=== PATIENT | male | born 1960 | race Caucasian/White ===

== ENCOUNTER 2023-08-07 10:42 | Outpatient (CLI) | payer BC, SELFPAY ==
[2023-08-07 17:28] LABS: Hemoglobin A1C 5.8 % (<5.7)
[2023-08-10 10:19] LABS: IgA 118 mg/dL (85-499)
[2023-08-11 17:19] LABS: Tissue Transglutaminase Ab IgA <1.2 U/mL; Tissue Transglutaminase Ab IgG <1.2 U/mL
[2023-08-12 19:37] LABS: Gliadin (Deamidated) Ab, IgA <10.0 U; Gliadin (Deamidated) Ab, IgG <10.0 U
== END 2023-08-07 10:43 ==
LOC: LBO 08-12 10:43
PROVIDERS: Visit Provider Student in an Organized Health Care Education/Training Program
DX: R73.03 Prediabetes (principal); K52.9 Noninfective gastroenteritis and colitis, unspecified
CPT/HCPCS: 36415; 82784; 83516; 83036; 86255

== ENCOUNTER 2023-08-14 20:04 | Outpatient (REF) | payer BC, SELFPAY ==
[2023-08-14 20:21] LABS: Calculated LDL 93 mg/dL (<100); Cholesterol 144 mg/dL (<200); HDL Cholesterol 37 mg/dL (40-60); TSH (W/Ref FT4) 1.98 uIU/mL (0.36-3.74); Triglyceride 73 mg/dL (<150)
[2023-08-17 08:15] LABS: PSA, Screening 2.2 ng/mL (<=4.5)
== END 2023-08-14 20:05 | disposition home or self-care (01) ==
LOC: NCHCN 20:04
PROVIDERS: Visit Provider Student in an Organized Health Care Education/Training Program
DX: Z12.5 Encounter for screening for malignant neoplasm of prostate (principal); E78.5 Hyperlipidemia, unspecified
CPT/HCPCS: 80061; 84153; 84443

== ENCOUNTER 2024-07-18 12:31 | Outpatient (REF) | payer BC, SELFPAY ==
[2024-07-18 15:38] LABS: HCT 42.7 % (40.0-50.0); HGB 14.4 g/dL (13.5-17.5); MCH 28.9 pg (27.0-33.0); MCHC 33.7 % (32.0-36.0); MCV 86 fL (80-95); MPV 9.8 fL (8.0-11.0); Platelet Count 184 10^3/uL (130-400); RBC 4.98 10^6/uL (4.36-5.78); RDW 13.2 % (11.8-14.1); RDW-SD 41.1 fL; WBC 10.87 10^3/uL (4.4-10.8)
[2024-07-18 15:46] LABS: ESR 1 mm/hr (0-20)
[2024-07-18 16:24] LABS: C-Reactive Protein < 0.50 mg/dL (<or=0.5); Uric Acid 6.7 mg/dL (3.5-7.2)
[2024-07-18 21:58] LABS: Rheumatoid Factor 34.6 IU/mL (<12.0)
[2024-07-19 08:52] LABS: Lyme Ab w Rflx to Lyme Confirm Negative (Negative)
[2024-07-19 10:26] LABS: Cyclic Citrullinated Peptide <2.5 U/mL (<5.0)
== END 2024-07-18 12:32 | disposition home or self-care (01) ==
LOC: NCHCN 12:31
PROVIDERS: PCP Student in an Organized Health Care Education/Training Program; Visit Provider Student in an Organized Health Care Education/Training Program
DX: M79.644 Pain in right finger(s) (principal)
CPT/HCPCS: 85027; 85652; 86200; 84550; 86140; 86431; 86618

== ENCOUNTER 2024-07-18 13:47 | Outpatient (CLI) | payer BC, SELFPAY ==
--- NOTE | 2024-07-18 | DI.RAD_ITS ---
Exam(s) XR FINGER RT INDEX EXAM: XR FINGER RT INDEX CLINICAL HISTORY: Pain in finger of rt hand, M79.644. TECHNIQUE: 2D digital imaging was performed. Three views. COMPARISON: No exams were available for comparison FINDINGS: BONES: No acute fracture is present. No bony destructive lesion is seen. JOINTS: No dislocation present. Moderate degenerative changes of the distal interphalangeal joint of the index finger. Mild degenerative changes elsewhere. SOFT TISSUE: Normal. No foreign body. IMPRESSION: Degenerative changes of the distal interphalangeal joint. No acute abnormality. DATA REPOSITORY: RADIATION DOSE DELIVERED:
== END 2024-07-18 14:07 ==
PROVIDERS: PCP Student in an Organized Health Care Education/Training Program; Visit Provider Student in an Organized Health Care Education/Training Program
DX: M79.644 Pain in right finger(s) (principal)
CPT/HCPCS: 73140

== ENCOUNTER 2024-07-25 13:36 | Outpatient (REF) | payer BC, SELFPAY ==
[2024-07-25 16:04] LABS: Hemoglobin A1C 5.8 % (<5.7)
[2024-07-25 16:08] LABS: Calculated LDL 86 mg/dL (<100); Cholesterol 136 mg/dL (<200); HDL Cholesterol 40 mg/dL (40-60); Triglyceride 52 mg/dL (<150)
[2024-07-26 13:31] LABS: ANA Interpretation Negative (Negative)
== END 2024-07-25 13:37 | disposition home or self-care (01) ==
LOC: NCHCN 13:36
PROVIDERS: PCP Student in an Organized Health Care Education/Training Program; Visit Provider Student in an Organized Health Care Education/Training Program
DX: R76.0 Raised antibody titer (principal); E78.5 Hyperlipidemia, unspecified; R73.03 Prediabetes
CPT/HCPCS: 80061; 83036; 86038

== ENCOUNTER 2024-11-21 18:18 | Outpatient (REF) | payer BC, SELFPAY | END 2024-11-21 18:19 | disposition home or self-care (01) | LOC: LBN 18:18 | PROVIDERS: PCP Student in an Organized Health Care Education/Training Program; Visit Provider Nurse Practitioner Family | DX: J02.9 Acute pharyngitis, unspecified (principal) | CPT/HCPCS: 87070 ==

== ENCOUNTER 2024-12-01 19:11 | Outpatient (REF) | payer BC, SELFPAY ==
[2024-12-01 18:55] LABS: HCT 43.2 % (40.0-50.0); HGB 14.6 g/dL (13.5-17.5); MCH 29.2 pg (27.0-33.0); MCHC 33.8 % (32.0-36.0); MCV 86 fL (80-95); MPV 9.7 fL (8.0-11.0); RDW 12.8 % (11.8-14.1); RDW-SD 39.8 fL; WBC 16.78 10^3/uL (4.4-10.8)
[2024-12-01 19:25] LABS: Absolute Basophil Count 0.17 10^3/uL (0.0-0.2); Absolute Eosinophil Count 0.17 10^3/uL (0.0-0.7); Absolute Lymphocyte Count 6.71 10^3/uL (1.2-3.4); Absolute Monocyte Count 0.84 10^3/uL (0.1-0.8); Absolute Neutrophil Count 8.89 10^3/uL (1.2-6.7); Atypical Lymphocytes % 8 %; Bands % 1 %; Diff Comment Manual Differential; Platelet Count 188 10^3/uL (130-400); RBC Morphology Normal
[2024-12-02 18:37] LABS: PSA, Diagnostic 10.5 ng/mL (<=4.5)
[2024-12-05 11:20] LABS: EBNA IgG Positive (Negative); EBV Interpretation (See Note); VCA IgG Positive (Negative); VCA IgM Negative (Negative)
== END 2024-12-01 19:12 | disposition home or self-care (01) ==
LOC: NCHCN 19:11
PROVIDERS: PCP Student in an Organized Health Care Education/Training Program; Visit Provider Student in an Organized Health Care Education/Training Program
DX: J02.9 Acute pharyngitis, unspecified (principal); R39.12 Poor urinary stream
CPT/HCPCS: 83036; 84153; 85025; 86664; 86665

== ENCOUNTER 2025-03-13 09:58 | Day surgery (SDC) | payer BC, SELFPAY ==
[2025-03-13 10:15] VITALS: BP 131/78; PULSE 71; RESP 18; TEMP 36.4; O2SAT 96
[2025-03-13] MEDS: Lactated Ringers 500 ML 80 ML IV (10:27)
--- NOTE | 2025-03-13 10:40 | W.ANESPRE ---
General Info Date of Service Date Performed: 03/13/25 Height: 5 ft 10 in Weight: 103.4 kg Body Mass Index (BMI): 32.7 Surgical Procedure: Operation Date: 03/13/25 11:05 Proposed Procedure Side Surgeon p Colonoscopy/Gastroscopy Shannan Arriaza MD Meds Allergies and Home Medications Allergies Allergy/AdvReac Type Severity Reaction Status Date / Time No Known Allergies Allergy Verified 03/13/25 10:13 Home Medication ?Medication ?Instructions ?Recorded atorvastatin 10 mg tablet (Lipitor) 10 mg PO DAILY 12/15/24 butalbital 50 mg-acetaminophen 300 1 cap PO Q4H PRN 12/15/24 mg-caffeine 40 mg-codeine 30 mg cap colchicine 0.6 mg capsule 0.6 mg PO BID 12/15/24 esomeprazole magnesium 20 mg 20 mg PO DAILY 12/15/24 capsule,delayed release (Nexium) lactobacillus combination no.9 4 4,000 mmu cells PO DAILY 12/15/24 billion cell capsule (Adult 50 Plus Probiotic) naproxen sodium 220 mg capsule 220 mg PO BID PRN 12/15/24 acetaminophen 650 mg 650 mg PO Q12H PRN 02/01/25 tablet,extended release (Tylenol Arthritis Pain) bisacodyl 5 mg tablet,delayed 5 mg PO ONCE colonscopy bowel prep 02/01/25 release (Dulcolax (bisacodyl)) #4 tabs esomeprazole magnesium 40 mg 40 mg PO DAILY #90 caps 02/01/25 capsule,delayed release polyethylene glycol 3350 17 238 g PO ONCE colonoscopy prep 02/01/25 gram/dose oral powder #238 grams Current Visit Medications: Current Medications Generic Name Dose Route Start Last Admin Trade Name Freq PRN Reason Stop Dose Admin Ringer's Solution 500 mls @ 80 mls/hr 03/13/25 09:55 03/13/25 10:27 IV 04/12/25 09:54 80 mls/hr PREOP DARWIN Administration IV Miscellaneous Supplies 1 each 03/13/25 06:00 Iv Access IV 03/13/25 23:59 DIRECTED DARWIN Sodium Biphosphate/Sodium Phosphate 133 - 266 ml 03/13/25 06:00 Na Phosphate Enema-Adult 133 Ml Btl TX 03/13/25 23:59 PRN PRN Sodium Chloride 0 ml 03/13/25 06:00 Normal Saline Flush 10 Ml Syr IV 03/13/25 23:59 PRN PRN Sodium Chloride 0 ml 03/13/25 06:00 Normal Saline 10 Ml Vial IJ 03/13/25 23:59 DIRECTED PRN Sterile Water 0 ml 03/13/25 06:00 Water,Injection,Sterile 10 Ml Vial IJ 03/13/25 23:59 DIRECTED PRN PFSH Active Problems Active Problems: Problem Status Onset Code Polyarthropathy Acute M13.0 Barretts esophagus Acute K22.70 GERD without esophagitis Acute K21.9 Hyperlipidemia Acute E78.5 Malignant neoplasm of skin Acute C44.90 Elevated PSA Acute R97.20 Medical History Medical History Altered bowel function Chronic diarrhea Chest pain Impingement syndrome, shoulder Biceps tendonitis on right Sore throat Essential hypertension Migraine Depressive disorder Acute stress disorder Anxiety state Vitamin D deficiency Surgical History Surgical History H/O shoulder surgery R shoulder Tobacco Smoking/Tobacco Use Status: Never Alcohol Alcohol Intake: never Substance Use Substance use: Occasionally Substance use type: marijuana Details: Last used marijuana on 03/11/25 Vital Signs and Lab Results Vital Signs Most Recent Vital Signs in EMR: Most Recent Vital Signs Temp Pulse Resp BP Pulse Ox 36.4 C L 71 18 131/78 96 03/13/25 10:15 03/13/25 10:15 03/13/25 10:15 03/13/25 10:15 03/13/25 10:15 Anesthesia Assessment and Plan Anesthesia History Personal History: No History of Anesthesia Complications Family History: No Family History of Anesthesia Complications Exercise Tolerance Exercise Tolerance: Metabolic Equivalents>4 Pertinent Negatives Pertinent Negatives: No Symptoms of GERD Cardiac & Pulmonary Exam Cardiac Exam: Normal S1/S2 Heart Sounds Pulmonary Exam: Clear Bilateral Breath Sounds Implantable Cardiac Device Does patient have a Pacemaker or an ICD?: No Airway Exam Known Difficult Airway: No Mallampati Class: 1 Mouth Opening: Normal (> 3cm) Thyromental Distance: Greater than 3 cm Neck Range of Motion: Full ROM Neck Circumference: Normal Teeth Condition: Normal Dentition ASA Classification ASA Score: ASA 2 Emergency Case?: No NPO Status NPO Status: NPO Clears >2 hours, Solids >8 hours Anesthesia Plan Resuscitation Status: Full Code Anesthesia Technique: General Anesthesia Airway Planned: Natural Airway Monitors Used: Standard Monitors
[2025-03-13 10:44] VITALS: BMI 32.7
--- NOTE | 2025-03-13 10:56 | W.PM.HP.N ---
Date of service: 03/13/25 Time of Service: 10:56 Assessment and Plan Assessment and plan (1) Encounter for colonoscopy due to history of adenomatous colonic polyps: Status: Acute Assessment and plan: Proceed with EGD and colonoscopy for barretts surveillance and polyp surveillance. Discussed procedures with patient and consent obtained. Nexum 40mg daily recommended for barretts, he takes 20mg. He will try the 40mg dose and if he gets adverse effects he can switch back to the 20mg dose. (2) Barretts esophagus: Status: Acute Assessment and plan: due for surveillance egd. proceed as planned. History of Present Illness History of Present Illness Chief Complaint: endoscopy Narrative: 64yo M here for egd and colonoscopy for barretts surveillance and hx of polyps. HPI from prior visit on 02/01/2025 is as follows for reference: The patient presents for a preoperative visit for colonoscopy and EGD. The primary reason for this visit is the management of Alvarado's esophagus, which necessitates an EGD every 2 to 3 years. He recalls undergoing both procedures in 2021 due to significant heartburn. He is a non-smoker and ceased alcohol consumption 13 years ago due to its exacerbation of his heartburn. He also avoids chocolate, another trigger for his heartburn. He suspects a hiatal hernia, as his father had a similar condition. His heartburn symptoms are well-managed with Nexium, although he notes that his diet can influence these symptoms. Recently, he has noticed weight gain, which he attributes to poor dietary choices. He often wakes up at night due to discomfort. He was previously on omeprazole 40 mg for heartburn but discontinued it due to severe diarrhea. He then switched to Nexium 20 mg, which he tolerates well. PFSH All Active Problems (Updated 03/13/25 @ 10:57 by Shannan Arriaza MD) Encounter for colonoscopy due to history of adenomatous colonic polyps (Acute) Polyarthropathy (Acute) Barretts esophagus (Acute) GERD without esophagitis (Acute) Hyperlipidemia (Acute) Malignant neoplasm of skin (Acute) Elevated PSA (Acute) Medical History (Updated 03/13/25 @ 10:57 by Shannan Arriaza MD) Altered bowel function Chronic diarrhea Chest pain Impingement syndrome, shoulder Biceps tendonitis on right Sore throat Essential hypertension Migraine Depressive disorder Acute stress disorder Anxiety state Vitamin D deficiency Surgical History H/O shoulder surgery R shoulder Social History Smoking/Tobacco Use Status: Never Smoking risk assessment performed?: Yes Alcohol Intake: never Drug use: Occasionally Substance use type: marijuana Details: Last used marijuana on 03/11/25 Housing: house Additional Social history: [place] privately Meds Allergies and Home Medications Allergies Allergy/AdvReac Type Severity Reaction Status Date / Time No Known Allergies Allergy Verified 03/13/25 10:13 Home Medications ?Medication ?Instructions ?Recorded ?Confirmed ?Type atorvastatin 10 mg tablet (Lipitor) 10 mg PO DAILY 12/15/24 03/13/25 History butalbital 50 mg-acetaminophen 300 1 cap PO Q4H PRN 12/15/24 03/10/25 History mg-caffeine 40 mg-codeine 30 mg cap colchicine 0.6 mg capsule 0.6 mg PO BID 12/15/24 03/10/25 History esomeprazole magnesium 20 mg 20 mg PO DAILY 12/15/24 03/13/25 History capsule,delayed release (Nexium) lactobacillus combination no.9 4 4,000 mmu cells PO DAILY 12/15/24 03/10/25 History billion cell capsule (Adult 50 Plus Probiotic) naproxen sodium 220 mg capsule 220 mg PO BID PRN 12/15/24 03/10/25 History acetaminophen 650 mg 650 mg PO Q12H PRN 02/01/25 03/10/25 History tablet,extended release (Tylenol Arthritis Pain) bisacodyl 5 mg tablet,delayed 5 mg PO ONCE colonscopy bowel prep 02/01/25 03/10/25 Rx release (Dulcolax (bisacodyl)) #4 tabs esomeprazole magnesium 40 mg 40 mg PO DAILY #90 caps 02/01/25 03/13/25 Rx capsule,delayed release polyethylene glycol 3350 17 238 g PO ONCE colonoscopy prep 02/01/25 03/10/25 Rx gram/dose oral powder #238 grams Exam Narrative Exam Narrative: awake, NAD eomi, MMM midline trachea, neck is symmetric PULM: normal resp effort, equal chest rise with respiration, no wheezing audible CARDIAC: normal PMI, no jvd, regular rate, normal perfusion abdomen is nondistended. extremities are without deformity, normal movement of all four extremities speech is clear and coherent mood and affect are congruent, no focal neurological deficits skin without rash Results Last Vital Signs Temp 97.5 F L 03/13/25 10:15 Pulse 71 03/13/25 10:15 Resp 18 03/13/25 10:15 BP 131/78 03/13/25 10:15 Pulse Ox 96 03/13/25 10:15 Time Spent Time spent with Patient: <40 minutes Time was spent: preparing to see the patient(eg.review tests), counseling the patient and care coordination
--- NOTE | 2025-03-13 11:13 | ESO_PTH ---
PATIENT: Mendez Avila LOC: [facility] U#:[id number] AGE/SX: 64/M ROOM: RE03/13/[address]: Shannan Arriaza MD : 1960 BED: DIS: 03/13/2025 SPEC #: [id number] RECD: 03/13/25 12:50 STATUS: LUAN REAlisa #: [id number] EDGAR: 03/13/25 11:[address]: Shannan Arriaza DEPT: Surgical Specimen RECD BY: Meera Trejo ENTERED: 03/13/25 12:50 SP TYPE: Zachery CASTRO DR: Nish Anthony Tissues: 1 - ESOPHAGUS BIOPSY Procedures: GROSS AND MICRO LEVEL 4 Comments: [id number]
--- NOTE | 2025-03-13 11:38 | W.PM.DSUDISC ---
Date of service: 03/13/25 Discharge Plan Disposition Patient Disposition: Home Condition: Stable Discharge Details Attending Provider: Shannan Arriaza Primary Care Provider: Nish Anthony Recommendations for Follow Up Recommended tests to be ordered by follow up provider: Next egd due in 3 years for Barretts esophagus surveillance. Next colonoscopy due in 5 years due to history of polyps. Home Meds and New Rx's Prescriptions: Continued atorvastatin [Lipitor] 10 mg tablet 10 mg PO DAILY esomeprazole magnesium [Nexium] 20 mg capsule,delayed release(DR/EC) 20 mg PO DAILY naproxen sodium 220 mg capsule 220 mg PO BID PRN Adult 50 Plus Probiotic 4 billion cell capsule 4,000 mmu cells PO DAILY Rx Instructions: administer with a meal [id number] [id number] mg capsule 1 cap PO Q4H PRN colchicine 0.6 mg capsule 0.6 mg PO BID acetaminophen [Tylenol Arthritis Pain] 650 mg tablet extended release 650 mg PO Q12H PRN bisacodyl [Dulcolax (bisacodyl)] 5 mg tablet,delayed release (DR/EC) 5 mg PO ONCE Qty: 4 0RF Rx Instructions: take per colonoscopy instructions polyethylene glycol 3350 17 gram/dose powder 238 g PO ONCE Qty: 238 0RF Rx Instructions: take per colonoscopy instructions esomeprazole magnesium 40 mg capsule,delayed release(DR/EC) 40 mg PO DAILY Qty: 90 3RF Patient Comments: on hold, pt has reservations about increased dose, stomach issues Discharge Instructions Additional Instructions: EGD shows no evidence of gross inflammatory change, nodularity or other concerning findings in the Barretts. The segment is short on examination today, extending 2cm at maximum. Biopsy taken as planned to rule out dysplastic/bad change. Repeat exam in 3 years. I will notify you by mail of bipsy result. Continue daily nexium. If the 40mg upsets your stomach, go back to 20mg daily. Colonoscopy is normal today, no polyps. Next colonoscopy due in 5 years. Activity:: Activity as Tolerated Diet:: As Tolerated Discharge Orders Discharge Orders: Discharge Order (Routine); Ordered 03/13/25 Ordered By: Shannan Arriaza DS: Diagnosis Discharge Diagnosis (1) Encounter for colonoscopy due to history of adenomatous colonic polyps: Status: Acute (2) Barretts esophagus: Status: Acute
--- NOTE | 2025-03-13 11:44 | W.PM.ENDDOP ---
Date of service: 03/13/25 Time of Service: 11:44 Endoscopy Report PROCEDURE DESCRIPTION: Endoscopy Report PRE-OP DIAGNOSIS: Barretts esophagus POST-OP DIAGNOSIS: same PROCEDURE: EGD with biopsy for Barretts surveillance SURGEON: Shannan Arriaza ANESTHESIA TYPE: General:No Airway ESTIMATED BLOOD LOSS: 1 PATHOLOGY: other (1. Barretts esophagus) COMPLICATIONS: None DISPOSITION: same day INDICATIONS: Surveillance in Barretts esophagus PROCEDURE DESCRIPTION: Lubricated endoscope was passed through a bite block into the second portion of the duodenum. The endoscope was withdrawn and the duodenum stomach and esophageal mucosa examined. The duodenum appeared normal. There is no inflammation or ulceration or erosion. The antrum appears normal. The fundus appears normal. The cardia appears normal. The endoscope was retroflexed and there is no evidence of hiatal hernia. GE junction is at 38cm from the incisors. The distal esophagus shows chronic change of Barretts metaplasia. The segment is short, extending from 38cm to 36cm. There is slight irregularity in the Z line without nodules or mass lesions. No gross inflammatory changes are seen. Remainder of the esophagus appears normal Cold forceps biopsies obtained from distal esophagus for Barretts surveillance. The upper digestive system was desufflated and the endoscope withdrawn. No complications. Assessment and plan: Barretts esophagus No evidence of gross inflammatory change, nodularity or other concerning findings in the Barretts. The segment is short on examination today, extending 2cm at maximum. Biopsytaken to rule out dysplastic change. Repeat exam in 3 years. Continue PPI daily.
--- NOTE | 2025-03-13 11:45 | W.COLOREPORT ---
Date of service: 03/13/25 Time of Service: 11:45 Colonoscopy Report Date of procedure: 03/13/25 Pre-op diagnosis general: history of colon polyps Post-op diagnosis procedure note: same Procedure: Colonoscopy Surgeon: Shannan Arriaza Anesthesia Type: General:No Airway Estimated blood loss (mL): 0 Pathology: none sent Complications: None Indications: surveillance for polyps Prep: Miralax/Dulcolax (good/fair) Procedure Description: Informed consent was obtained and the patient was taken to the procedure area. The patient was placed in left lateral decubitus position on the procedure table. Timeout was performed. Anesthesia was induced. A lubricated colonoscope was inserted through the anus and passed to the cecum. The cecum was identified by the ileocecal valve and the appendiceal orifice. The scope was then slowly withdrawn and the colonic and rectal mucosa examined. TI intubated and examined. It appears normal. There are no colon or rectal mass lesions, polyps, AVMs. There is no inflammatory change. No diverticulosis was seen. The scope was retroflexed in the anorectal junction examined. Uncomplicated internal hemorrhoids present. Assessment and plan: History of colon polyps No polyps on todays exam. Next colonoscopy will be due in 5 years due to history of adenomatous and serrated polyps.
[2025-03-13 11:47] VITALS: BP 104/73; PULSE 70; RESP 18; TEMP 36.4; O2SAT 96
--- NOTE | 2025-03-13 12:12 | W.ANESPOSTOP ---
Postoperative Evaluation Date, Time and Location Date Performed: 03/13/25 Time Performed: 11:57 Patient Location: Day Surgery Unit Vital Signs Most Recent Imported Vital Signs: Most Recent Vital Signs Temp Pulse Resp BP Pulse Ox 36.4 C L 70 18 104/73 96 03/13/25 11:47 03/13/25 11:47 03/13/25 11:47 03/13/25 11:47 03/13/25 11:47 Pain Score Most Recent Pain Score: Most Recent Pain Score Pain Level 0 03/13/25 11:47 Assessment Mental Status: Awake (Alert & Oriented to Patient Baseline) Airway and Respiratory Function: Patent airway with normal (patient baseline) respiratory exam Cardiovascular Function: Hemodynamically Stable Hydration Status: Adequately Hydrated Nausea & Vomiting: No Nausea or Vomiting Pain: Pt. Denies Any Pain Peripheral Nerve Block: Patient did not receive a nerve block
[2025-03-13 12:19] VITALS: BP 120/81; PULSE 60; RESP 16; TEMP 36.2; O2SAT 97
== END 2025-03-13 12:40 | disposition home or self-care (01) ==
PROVIDERS: PCP Student in an Organized Health Care Education/Training Program; Visit Provider Surgery
PROC: (CPT 43239; principal; 2025-03-13 11:00)
DX: Z12.11 Encounter for screening for malignant neoplasm of colon (principal); Z86.0101 Personal history of adenomatous and serrated colon polyps; K22.70 Barrett's esophagus without dysplasia
CPT/HCPCS: 43239; 45378; 88305; J2003; J2704